=== PATIENT | female | born 1970 | race Caucasian/White ===

== ENCOUNTER 2020-06-28 10:15 | Inpatient (IN) | payer OTHER ==
[2020-06-28 10:52] LABS: #Basophils 0.1 thou/uL (0.0-0.2); #Eosinphils 0.1 thou/uL (0.0-0.7); #Lymphocytes 1.5 thou/uL (1.20-3.40); #Monocytes 0.5 thou/uL (0.11-0.59); %Basophils 2.2 % (0.0-1.0); %Eosinophils 1.4 % (0.0-10.0); %Lymphocytes 28.5 % (21.0-51.0); %Monocytes 9.8 % (0.0-10.0); %Neutrophils 58.2 % (42.0-75.0); Hemoglobin 8.3 g/dL (12.0-16.0); Mean Corpuscular Hemoglobin 24.9 pg (27.0-31.0); Mean Corpuscular Volume 77.9 fL (78.0-98.0); Mean Platelet Volume 9.1 fL (7.4-10.4); Platelet Count 235 thou/uL (130-400); RBC Distribution Width 14.8 % (11.5-14.5); Red Blood Cell (RBC) Count 3.35 mill/uL (4.20-5.40); White Blood Cell (WBC) Count 5.2 thou/uL (4.8-10.8)
[2020-06-28 11:19] LABS: Bacteria/HPF 4+ HPF (None Seen); Bilirubin Negative (Negative); Blood, Urine Trace (Negative); Clarity Turbid (Clear); Glucose, Urine (Dipstick) Normal (Negative); Ketone, Urine Negative (Negative); Leukocyte 500 Leu/uL (Negative); Nitrite Negative (Negative); Protein, Urine (Dipstick) 10 mg/dL (Neg-Trace); RBC/HPF 0-3 HPF (0-3); Specific Gravity, Urine 1.029 (1.002-1.036); Squamous Epithelial 21-50 HPF (0-3); Urobilinogen Normal mg/dL (Less than 2); WBC/HPF 21-50 HPF (0-3)
[2020-06-28 11:26] LABS: ALT (SGPT) 9 U/L (8-55); AST (SGOT) 14 U/L (5-34); Albumin 3.5 g/dL (3.5-5.0); Alkaline Phosphatase 91 U/L (40-110); Anion Gap 9 mmol/L (10-20); BUN (Urea Nitrogen) 31 mg/dL (7.0-18.7); Bilirubin, Total Less than 0.2 mg/dL (0.2-1.2); Calc. Creatinine Clearance 0 mL/min (70-130); Calcium 8.6 mg/dL (7.8-10.44); Carbon Dioxide 25 mmol/L (22-29); Chloride 108 mmol/L (98-107); Globulin 2.9 g/dL (2.4-3.5); Glucose 84 mg/dL (70-105); Potassium 3.8 mmol/L (3.5-5.1); Protein, Total 6.4 g/dL (6.0-8.3); Sodium 138 mmol/L (136-145)
[2020-06-28] MEDS ORDERED: Guaifenesin DM 100-10/5 ML UDCUP PO PRN (12:14)
[2020-06-28] MEDS ORDERED: Ondansetron PF 4 MG/2 ML Vial IVP PRN (12:14)
[2020-06-28] MEDS ORDERED: Acetaminophen 325 MG TAB PO PRN (12:14)
[2020-06-28 12:50] LABS: Hemoglobin 7.4 g/dL (12.0-16.0)
[2020-06-28 13:09] LABS: Iron 33 ug/dL (50-170); Iron Binding Capacity, Total 286 mcg/dL (265-497)
[2020-06-28 13:38] LABS: Ferritin 13.14 ng/mL (10-291)
[2020-06-28] MEDS ORDERED: Pantoprazole 40 MG VIAL ONE (13:54)
[2020-06-28] MEDS: Sodium Chloride 0.9% 1,000 ML IV SCH (16:34)
[2020-06-28 18:09] VITALS: BMI 39.9
[2020-06-28 18:47] LABS: Pregnancy Test - Urine (BHCG) Negative (Negative); Pregu Control Background? CLEAR/WHITE (CLR/WHITE); Pregu Control Bar Appear? YES (CONTROL BAR); Specific Gravity 1.025 (1.002-1.036)
[2020-06-28 19:45] LABS: Hemoglobin 7.1 g/dL (12.0-16.0)
[2020-06-28] MEDS: Ciprofloxacin 500 MG TAB PO SCH (19:47)
[2020-06-28] MEDS: Pantoprazole 40 MG VIAL IVP SCH (21:11)
[2020-06-29 02:17] LABS: SARS-CoV-2 PCR by NAA Not Detected (NotDetected)
[2020-06-29] MEDS: Sodium Chloride 0.9% 1,000 ML IV SCH (04:26)
[2020-06-29 06:05] LABS: Hemoglobin 7.2 g/dL (12.0-16.0)
[2020-06-29] MEDS: Ciprofloxacin 500 MG TAB PO SCH ×2 (06:24→21:04)
[2020-06-29 06:29] LABS: Anion Gap 10 mmol/L (10-20); BUN (Urea Nitrogen) 17 mg/dL (7.0-18.7); Calc. Creatinine Clearance 180 mL/min (70-130); Calcium 7.9 mg/dL (7.8-10.44); Carbon Dioxide 22 mmol/L (22-29); Cardiac Risk 4.5 (Less than 4.5); Chloride 112 mmol/L (98-107); Cholesterol 100 mg/dl (< 200 Desired); Glucose 83 mg/dL (70-105); HDL Cholesterol 22 mg/dL (>60 Neg Risk); LDL Cholesterol, Calculated 52 mg/dL; Potassium 3.8 mmol/L (3.5-5.1); Sodium 140 mmol/L (136-145); Triglycerides 131 mg/dL (Less than 150)
[2020-06-29] MEDS: Pantoprazole 40 MG VIAL IVP SCH ×2 (08:52→21:04)
[2020-06-29] MEDS ORDERED: PROPOFOL 200 MG/20 ML VIAL ONE (10:52)
[2020-06-29] MEDS ORDERED: Lidocaine 1% PF 5 ML VIAL ONE (10:52)
[2020-06-29] MEDS ORDERED: Ferrous Gluconate 324 MG TAB PO SCH (11:45)
[2020-06-30] MEDS: Ciprofloxacin 500 MG TAB PO SCH ×2 (06:02→19:39)
[2020-06-30] MEDS: Sodium Chloride 0.9% 1,000 ML IV SCH ×2 (06:02→19:40)
[2020-06-30 06:57] LABS: #Eosinphils 0.2 thou/uL (0.0-0.7); #Monocytes 0.3 thou/uL (0.11-0.59); %Basophils 0.2 % (0.0-1.0); %Eosinophils 5.6 % (0.0-10.0); %Lymphocytes 29.5 % (21.0-51.0); %Monocytes 7.5 % (0.0-10.0); %Neutrophils 57.3 % (42.0-75.0); Hemoglobin 6.5 g/dL (12.0-16.0); Mean Corpuscular HGB CONC 31.4 g/dL (32.0-36.0); Mean Corpuscular Hemoglobin 24.7 pg (27.0-31.0); Mean Corpuscular Volume 78.5 fL (78.0-98.0); Mean Platelet Volume 9.3 fL (7.4-10.4); Platelet Count 200 thou/uL (130-400); RBC Distribution Width 15.5 % (11.5-14.5); Red Blood Cell (RBC) Count 2.65 mill/uL (4.20-5.40); White Blood Cell (WBC) Count 3.5 thou/uL (4.8-10.8)
[2020-06-30 07:26] LABS: Anion Gap 13 mmol/L (10-20); BUN (Urea Nitrogen) 8 mg/dL (7.0-18.7); Calc. Creatinine Clearance 186 mL/min (70-130); Carbon Dioxide 18 mmol/L (22-29); Chloride 111 mmol/L (98-107); Glucose 86 mg/dL (70-105); Potassium 3.7 mmol/L (3.5-5.1); Sodium 138 mmol/L (136-145)
[2020-06-30] MEDS ORDERED: Ferrous Gluconate 324 MG TAB PO SCH (08:00)
[2020-06-30] MEDS: Pantoprazole 40 MG VIAL IVP SCH ×2 (08:37→19:40)
[2020-06-30 09:25] VITALS: TEMP 97.8
[2020-06-30] MEDS ORDERED: Furosemide 20 MG/2 ML VIAL SLOW IVP PRN (09:58)
[2020-06-30 14:45] VITALS: BP 114/63
== END 2020-06-30 21:11 | disposition home or self-care (01) | DRG 378 ==
LOC: ERS 10:15 → ONC 12:14
PROVIDERS: ADMIT Internal Medicine; ATTEND Internal Medicine
PROC: 0DJ08ZZ Inspection of Upper Intestinal Tract, Via Natural or Artificial Opening Endoscopic (ICD-10-PCS; principal; 2020-06-29)
PROC: 30233N1 Transfusion of Nonautologous Red Blood Cells into Peripheral Vein, Percutaneous Approach (ICD-10-PCS; 2020-06-30)
DX: K25.4 Chronic or unspecified gastric ulcer with hemorrhage (principal); D62 Acute posthemorrhagic anemia; Z68.41 Body mass index [BMI] 40.0-44.9, adult; N39.0 Urinary tract infection, site not specified; Z20.822 Contact with and (suspected) exposure to COVID-19; E66.9 Obesity, unspecified; H90.3 Sensorineural hearing loss, bilateral; Z98.51 Tubal ligation status; Z79.899 Other long term (current) drug therapy
CPT/HCPCS: 36415; 36430; 80048; 80053; 80061; 81003; 81015; 81025; 82607; 82728; 82746; 83540; 83550; 85014; 85018; 85025; 86850; 86900; 86901; 87086; 87635; 96365; C9113; J1940; J2704; P9016; U0003; U0005